=== PATIENT | female | born 1970 | race Native Hawaiian/Other Pacific Islander ===

== ENCOUNTER 2016-12-13 12:10 | Emergency (ER) ==
[2016-12-13 12:20] VITALS: BP 119/76
--- NOTE | 2016-12-13 13:14 | PROVIDER DOCUMENTATION ---
HPI-Respiratory General <Kira Hyatt - Last Filed: 12/13/16 14:27> - General Source: family (daughter) - History of Present Illness-Resp Quality of Pain: reports: aching Severity in ED: reports: mild Onset/Duration: reports: other (two weeks) Timing: reports: still present, intermittent Exposure: reports: unknown cause Cough Quality/Degree: reports: productive cough Episode Frequency: frequent episodes Current Respiratory Medication Therapy: Initiated see nurses note Modifying Factors: improves with: nothing Associated Symptoms: reports: cough, shortness of breath. denies: chest pain/ soreness, dizziness, earache, facial pain, fever/chills, flu-like symptoms, headache, heart racing, hurts to breathe, hyperventilating, lightheadedness, muscle/bodyaches, nasal congestion, nasal drainage, sinus pain, short of breath , sore throat, sweaty, wheezing Similar Symptoms Previously?: Yes Recently seen or treated by another doctor?: No <Yolande Griffiths - Last Filed: 12/13/16 14:28> - General Chief Complaint: Cough Stated Complaint: SOB Time Seen by Provider: 12/13/16 12:46 Allergies/Adverse Reactions: Patient Allergies Allergy/AdvReac Type Severity Reaction Status Date / Time No Known Allergies Allergy Verified 12/13/16 12:20 Home Medications: Home Medication List Medication Instructions Recorded Confirmed Last Taken Type Azithromycin [Zithromax Z-Jimmy] 250 mg PO DIRECTED #1 pkg 12/13/16 Unknown Rx Benzonatate [Tessalon Perle] 100 mg PO TID #30 capsule 12/13/16 Unknown Rx Nitrofurantoin Monohyd/M-Cryst 100 mg PO BID #14 capsule 12/13/16 Unknown Rx [Macrobid 100 mg Capsule] - History of Present Illness-Resp Nature of Presenting Problem: Pt is 46 y/o F presents to the ED with SOB. Pt's daughter states Pt has had SOB for two weeks. Pt's daughter denies recent cold or sickness for Pt. Pt's daughter denies F or chills. Pt's daughter states Pt has cough and L flank pain with cough. (Yolande Griffiths) Review of Systems - Adult - REVIEW OF SYSTEMS - ADULT Constitutional: denies: chills, fever Eyes: denies: blurred vision, double vision Ears, Nose, Mouth & Throat: denies: ear pain, nose pain, throat pain Cardiovascular: denies: chest pain, heart murmur, irregular heart rate Respiratory: reports: cough, shortness of breath Gastrointestinal: denies: abdominal pain, diarrhea, nausea, vomiting Genitourinary: denies: dysuria, hematuria Musculoskeletal: denies: bone pain, joint pain, neck pain Integumentary: denies: hives, itching Neurological: denies: dizziness/vertigo, headache/migraines Psychiatric: reports: no symptoms reported Endocrine: reports: no symptoms reported Hematologic/Lymphatic: reports: no symptoms reported Allergic/Immunologic: reports: no symptoms reported All Other Systems: Reviewed and Negative <Yolande Griffiths - Last Filed: 12/13/16 14:28> Past History - Adult - PAST MEDICAL HISTORY-ADULT Review of Records: reports: Nursing Assessment Review, Medications Reviewed, Social history reviewed & non-contributory. Major Childhood Illnesses: reports: denies history Cardiovascular: reports: denies history Respiratory: reports: denies history Gastrointestinal: reports: denies history Obstetrical/Gynecological: reports: denies history Genitourinary: reports: denies history Musculoskeletal: reports: denies history Neurological: reports: denies history Endocrine/Immune: reports: denies history Other Conditions: reports: denies history - PRIOR SURGERIES/PROCEDURES Surgical/Procedure History: reports: reviewed, not pertinent - IMMUNIZATION STATUS Childhood Immunizations: See Nurse Assessment Flu Vaccine: See Nurse Assessment - FAMILY HISTORY Family History: reviewed, not pertinent - SOCIAL HISTORY Smoking: quit greater than 1 year, cigarettes Substance Use: denies Living Situation: family <Yolande Griffiths - Last Filed: 12/13/16 14:28> Physical Exam-General - PHYSICAL EXAM-ADULT Initial Vital Signs Reviewed: Yes - CONSTITUTIONAL General Appearance: appears well, alert, no apparent distress - EYES Eyes: PERRL/EOMI, pink conjunctivae, fundi clear, no AV nicking - HEAD, EARS, NOSE, MOUTH & THROAT HENMT: normocephalic/atraumatic, moist mucous membranes, normal ENT inspection, TMs normal, pharynx normal - NECK Neck: non-tender, full range of motion, supple, normal inspection - RESPIRATORY Respiratory: chest non-tender, lungs clear, normal breath sounds, no pleuratic chest pain, no respiratory distress, no accessory muscle use - CARDIOVASCULAR Cardiovascular: normal peripheral pulses, regular rate, rhythm, no edema, no gallop, no JVD, no murmur - GASTROINTESTINAL (ABDOMEN) Abdominal Exam: normal bowel sounds, non tender, soft, no organomegaly, no pulsatile mass - LYMPHATIC Lymphatic: no adenopathy - MUSCULOSKELETAL Back Exam: normal inspection, no CVA tenderness, no vertebral tenderness Extremity: normal range of motion, non-tender, normal gait, normal inspection, no pedal edema, no calf tenderness, normal capillary refill, pelvis stable - SKIN Integumentary: normal color, normal turgor, warm/dry - 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 العراقي, recommendations to palce patient on z- pack and cough med and follow-up with PCP (Kira Hyatt) Vital Signs - 24 hr 12/13/16 12:13 Temperature 97.8 F Pulse Rate 73 Respiratory 18 Rate Blood Pressure 119/76 O2 Sat by Pulse 99 Oximetry Orders Category Date Time Status CHEST-2 VIEWS [RAD] Stat Exams 12/13/16 13:11 Ordered CBC WITH DIFF [HEME] Stat Lab 12/13/16 13:11 Ordered CMP [COMPREHENSIVE METABOLIC PANEL] [CHEM] Stat Lab 12/13/16 13:11 Ordered UA [URINALYSIS PL] [URINALYSIS] Stat Lab 12/13/16 13:12 Ordered Laboratory Tests 12/13/16 12/13/16 12/13/16 13:27 13:27 13:27 WBC 10.97 H RBC 4.56 Hgb 13.4 Hct 40.3 MCV 88.4 MCH 29.4 MCHC 33.3 RDW Std Deviation 13.0 Plt Count 243 MPV 9.5 Immature Gran % (Auto) 0.2 Neut % (Auto) 46.6 Lymph % (Auto) 33.9 [place] % (Auto) 4.6 Eos % (Auto) 14.0 H Baso % (Auto) 0.7 Immature Gran # (Auto) 0.02 Neut # (Auto) 5.10 Lymph # (Auto) 3.72 H [place] # (Auto) 0.51 Eos # (Auto) 1.54 H Baso # (Auto) 0.08 D-Dimer 0.48 Sodium 137 Potassium 3.9 Chloride 102 Carbon Dioxide 26 Anion Gap 9 BUN 9 Creatinine 0.6 Estimated GFR/1.73 m2 > 60 BUN/Creatinine Ratio 15 Glucose 127 H Calculated Osmolality 274 Calcium 9.1 Total Bilirubin 0.20 AST 17 ALT 14 Alkaline Phosphatase 58 Total Protein 7.6 Albumin 4.2 Globulin 3.0 Albumin/Globulin Ratio 1.0 Urine Source Urine Color Urine Clarity Urine pH Ur Specific [place] Urine Protein Urine Ketones Urine Blood Urine Nitrite Urine Bilirubin Urine Urobilinogen Urine Microscopic RBC Urine WBC Ur Epithelial Cells Urine Bacteria Urine Glucose Urine Test 12/13/16 12/13/16 13:40 13:40 WBC RBC Hgb Hct MCV MCH MCHC RDW Std Deviation Plt Count MPV Immature Gran % (Auto) Neut % (Auto) Lymph % (Auto) [place] % (Auto) Eos % (Auto) Baso % (Auto) Immature Gran # (Auto) Neut # (Auto) Lymph # (Auto) [place] # (Auto) Eos # (Auto) Baso # (Auto) D-Dimer Sodium Potassium Chloride Carbon Dioxide Anion Gap BUN Creatinine Estimated GFR/1.73 m2 BUN/Creatinine Ratio Glucose Calculated Osmolality Calcium Total Bilirubin AST ALT Alkaline Phosphatase Total Protein Albumin Globulin Albumin/Globulin Ratio Urine Source CLEAN CATCH Urine Color YELLOW Urine Clarity SL. CLOUDY A Urine pH 8.0 Ur Specific [place] 1.005 Urine Protein NEGATIVE Urine Ketones NEGATIVE Urine Blood NEGATIVE Urine Nitrite NEGATIVE Urine Bilirubin NEGATIVE Urine Urobilinogen NORMAL Urine Microscopic RBC Not Reportable Urine WBC TRACE A Ur Epithelial Cells <10 Urine Bacteria 2+ Urine Glucose NEGATIVE Urine Test NEGATIVE (Yolande Griffiths) Departure - Departure Time of Disposition Order: 14:21 Certified Medical Emergency: Emergent <Kira Hyatt - Last Filed: 12/13/16 14:27> <Yolande Griffiths - Last Filed: 12/13/16 14:28> - Departure DIAGNOSIS: Bronchitis, Cough, Shortness of breath UTI (urinary tract infection) Qualifiers: Urinary tract infection type: site unspecified Hematuria presence: without hematuria Qualified Code(s): N39.0 - Urinary tract infection, site not specified Disposition: HOME 01 Condition: Stable Additional Instructions: ED Follow Up Instructions: You have been treated by a care provider in the Emergency Department. These instructions are being provided to you so you can have an understanding of how to care for yourself upon discharge. Upon discharge from the Emergency Department, you are responsible for making arrangements for follow-up care by a physician of your choice. Take all prescribed medications as directed. Return to the Emergency Department immediately for any new or worsening symptoms. You may call the Physician Referral phone number at [phone] to obtain a list of Physicians who are taking new patients. Prescriptions: Nitrofurantoin Monohyd/M-Cryst [Macrobid 100 mg Capsule] 100 mg PO BID #14 capsule Benzonatate [Tessalon Perle] 100 mg PO TID #30 capsule Azithromycin [Zithromax Z-Jimym] 250 mg PO DIRECTED #1 pkg Referrals: None,PCP [Primary Care Provider] - Attestation - Scribe Verification/Attestation Scribe:: Yolande Griffiths Acting as Scribe for:: Kira Hyatt Scribe documention review:: This chart was documented by a scribe and accurately reflects the service the provider performed and the decisions made by the provider. <Yolande Griffiths - Last Filed: 12/13/16 14:28> Physician Attestation
[2016-12-13 13:32] LABS: MANUAL DIFF NEEDED? NO
[2016-12-13 13:34] LABS: BASO% 0.7 % (0.0-0.8); EOS# 1.54 X1000 (0.0-0.7); HEMATOCRIT 40.3 % (37.0-47.0); HEMOGLOBIN 13.4 g/dL (12.0-16.0); IMM GRAN# 0.02 X1000 (0.0-0.04); IMM GRAN% 0.2 % (0.0-0.5); LYMPH# 3.72 X1000 (1.2-3.4); LYMPH% 33.9 % (20.5-51.1); MCH 29.4 PG (27-31); MCHC 33.3 g/dL (33-37); MCV 88.4 FL (81-99); MONO# 0.51 X1000 (0.11-0.59); MONO% 4.6 % (1.7-9.3); MPV 9.5 FL (7.4-10.4); NEUT% 46.6 % (42.2-75.2); PLT 243 X1000 (130-400); RBC 4.56 XMIL (4.2-5.4)
--- NOTE | 2016-12-13 13:46 | Diag Imaging Result Document ---
PROCEDURE NAME: CHEST-2 VIEWS - 12/13/2016 TWO VIEWS OF THE CHEST: FINDINGS: There is no evidence of acute cardiac or pulmonary disease and no previous studies are available for comparison. IMPRESSION: No acute disease.
[2016-12-13 13:50] LABS: URINE SOURCE CLEAN CATCH
[2016-12-13 13:54] LABS: AGAP 9; ALBUMIN 4.2 g/dL (3.5-5.0); ALKALINE PHOSPHATASE 58 U/L (32-104); BUN 9 mg/dL (8-22); CALCIUM 9.1 mg/dL (8.8-10.2); CHLORIDE 102 mmol/L (98-107); COSMO 274; GOT 17 U/L (10-30); GPT 14 U/L (10-36); POTASSIUM 3.9 mmol/L (3.5-5.1); SODIUM 137 mmol/L (136-145); TCO2 26 mmol/L (25-35); TOTAL PROTEIN 7.6 g/dL (6.3-8.3)
[2016-12-13 14:09] LABS: BILIRUBIN URINE NEGATIVE (NEGATIVE); BLOOD URINE NEGATIVE (NEGATIVE); CLARITY SL. CLOUDY (CLEAR); COLOR YELLOW; GLUCOSE URINE NEGATIVE (NEGATIVE); LEUKOCYTES URINE TRACE (NEGATIVE); NITRITE URINE NEGATIVE (NEGATIVE); PROTEIN URINE NEGATIVE (NEGATIVE); SP GRAVITY URINE 1.005; URINE MICROSCOPIC NEEDED? YES; UROBILINOGEN URINE NORMAL
[2016-12-13 14:10] LABS: URINE EPITHELIAL CELLS <10 /HPF (<10)
[2016-12-13] MEDS ORDERED: DECADRON IM ONE (14:25)
== END 2016-12-13 14:43 | disposition home or self-care (01) ==
LOC: EDBD 12:10 → P.ED 12:10
DX: J40 Bronchitis, not specified as acute or chronic (principal); N39.0 Urinary tract infection, site not specified; R05 Cough; R06.02 Shortness of breath; R10.9 Unspecified abdominal pain; R09.3 Abnormal sputum; Z87.891 Personal history of nicotine dependence
CPT/HCPCS: 71020; 80053; 81001; 81025; 85025; 85379; 96372